=== PATIENT | female | born 1985 | race Caucasian/White ===

== ENCOUNTER 2016-07-24 22:50 | Emergency (ER) | payer MEDICAID ==
[~2016-07-24] VITALS: Ht 172.7 cm; Wt 81.6 kg
[2016-07-24 22:51] VITALS: BP 111/68
== END 2016-07-24 23:55 ==
LOC: ED 23:39
DX: O99.313 Alcohol use complicating pregnancy, third trimester (principal); A64 Unspecified sexually transmitted disease; F17.210 Nicotine dependence, cigarettes, uncomplicated; O99.343 Other mental disorders complicating pregnancy, third trimester; F32.9 Major depressive disorder, single episode, unspecified; G40.909 Epilepsy, unspecified, not intractable, without status epilepticus; Y90.9 Presence of alcohol in blood, level not specified
CPT/HCPCS: 99284

== ENCOUNTER 2016-07-25 00:31 | Emergency (ER) | payer MEDICAID ==
[~2016-07-25] VITALS: Ht 172.7 cm; Wt 81.9 kg
[2016-07-25 01:11] VITALS: BP 112/60
[2016-07-25 01:22] LABS: BLOOD UREA NITROGEN 3 mg/dL (7-18)
[2016-07-25 01:25] LABS: ASPARTATE AMINO TRANSFERASE 25 U/L (15-37)
[2016-07-25 01:29] LABS: ACETAMINOPHEN < 2 mcg/mL (10-30)
[2016-07-25 01:48] LABS: DAU SCREEN DISCLAIMER
[2016-07-25] MEDS ORDERED: POTASSIUM CHLORIDE 20 MEQ TAB.ER.PRT PO ONE (02:00)
[2016-07-25] MEDS ORDERED: POTASSIUM CHLORIDE 20 MEQ TAB.ER.PRT ONE (02:06)
== END 2016-07-25 02:34 | disposition left against medical advice (07) ==
LOC: ED 02:06
DX: O23.13 Infections of bladder in pregnancy, third trimester (principal); Z3A.29 29 weeks gestation of pregnancy; F10.10 Alcohol abuse, uncomplicated; E87.6 Hypokalemia
CPT/HCPCS: 36415; 80053; 80307; 80329; 81001; 85025; 87077; 87086; 87186; 99284; G0480

== ENCOUNTER 2020-05-27 19:20 | Emergency (ER) | payer SELFPAY ==
[~2020-05-27] VITALS: Ht 170.2 cm; Wt 62.6 kg
--- NOTE | 2020-05-27 19:33 | NUR ---
INITIAL PT CONTACT. PT PRESENTS TO ED C/O COUGHING UP MUCUS X1WK, RECENTLY STARTED COUGHING UP "BLACK FLAKES AND HAIRS" AND "LIKE WORM THINGS. IT MUST BE A PARASITE OR SOMETHING. I FEEL IT MOVING AROUND IN MY NOSE. THEY JUST HOLD ON IN THERE, ALMOST TICKLE. AND MAKE THIS COUGHING THING HAPPEN." PT STATES," I FEEL IT COMING OUT OF MY SKIN ALL OVER LIKE ON MY FACE". PT UNABLE TO SIT STILL IN ROOM, CONTINUALLY WRECHING INTO EMESIS BAG IN ROOM. NO BLACK SPECS OR PARASITE/WORM EVIDENCE FOUND IN EMESIS BAG BY THIS RN. PT EXTREMELY ANXIOUS AND TEARFUL IN ROOM. RESPIRATIONS EQUAL AND UNLABORED, PT SPEAKING IN FULL SENTENCES. PT STATES SHE RECENTLY STOPPED TAKING PSYCH MEDS THREE DAYS AGO AND LAST METH USE WAS TWO DAYS AGO. PT SIGNIFICANT OTHER AT BEDSIDE. PT PLACED ON CONTINUOUS MONITORING. AWAITING ERP.
--- NOTE | 2020-05-27 20:19 | NUR ---
ERP AT BEDSIDE
--- NOTE | 2020-05-27 20:29 | NUR ---
PT TO IMAGING
--- NOTE | 2020-05-27 20:34 | NUR ---
PT RETURNED FROM IMAGING
[2020-05-27 21:21] VITALS: BP 115/98
--- NOTE | 2020-05-27 21:32 | NUR ---
Patient given discharge instructions and they have confirmed that they understand the instructions. Patient ambulatory with steady gait.
== END 2020-05-27 21:34 | disposition home or self-care (01) ==
LOC: ED 19:50
DX: F15.151 Other stimulant abuse with stimulant-induced psychotic disorder with hallucinations (principal); F15.122 Other stimulant abuse with intoxication with perceptual disturbance; F17.200 Nicotine dependence, unspecified, uncomplicated
CPT/HCPCS: 71046; 99283